=== PATIENT | male | born 2000 ===

== ENCOUNTER 2021-12-22 08:48 | Emergency (ER) | payer SELFPAY ==
[2021-12-22] MEDS ORDERED: TETANUS,DIPH,PERTUSS(ACELL) VACCINE 0.5 ML SYRINGE IM ONE (11:26)
[2021-12-22] MEDS ORDERED: LIDOCAINE (1%) 10 MG/1 ML VIAL 20 ML MDV INFILTRATI ONE (11:26)
[2021-12-22] MEDS ORDERED: SODIUM CHLORIDE 0.9% IRR 500 ML BOTTLE IR ONE (11:27)
[2021-12-22 11:40] VITALS: BP 124/64
--- NOTE | 2021-12-22 12:08 | XRay Report ---
LEFT FINGERS 3 VIEWS INDICATION / CLINICAL INFORMATION: laceration, r/o fracture/FB. COMPARISON: None available. FINDINGS: No fracture, dislocation or soft tissue swelling is seen within the right long finger. No soft tissue gas or radiopaque foreign body. Signer Name: Rudy Willett MD Signed: 12/22/2021 12:04 PM Workstation Name: [email or web address] [email or web address] [id number]
--- NOTE | 2021-12-22 12:53 | Emergency Department Report ---
ED General Adult HPI - General Chief complaint: Laceration/Recheck/Suture Stated complaint: CUT FINGER Time Seen by Provider: 12/22/21 10:44 Source: patient Mode of arrival: Ambulatory Limitations: No Limitations - History of Present Illness Initial comments: 21-year-old male patient presents with complaints of laceration to the left middle finger today. Patient states he cut his hand with a table saw. He denies any loss of sensation or difficulty moving the finger. No known drug allergies per patient. He is unsure of his last tetanus vaccination. Severity scale (0 -10): 3 - Related Data Previous Rx's Medication Instructions Recorded Last Taken Type Ibuprofen [Motrin 800 MG tab] 800 mg PO Q8HR PRN #20 tablet 12/22/21 Unknown Rx Mupirocin [Bactroban 2% OINT] 1 applic TP TID 7 Days #1 tube 12/22/21 Unknown Rx cephALEXin [Keflex] 500 mg PO Q12HR 7 Days #14 cap 12/22/21 Unknown Rx Allergies Allergy/AdvReac Type Severity Reaction Status Date / Time No Known Allergies Allergy Verified 12/22/21 10:35 ED Review of Systems ROS: Stated complaint: CUT FINGER Other details as noted in HPI Musculoskeletal: denies: arthralgia Skin: denies: change in color Neurological: denies: numbness, paresthesias ED Past Medical Hx - Medications Home Medications: Home Medications Medication Instructions Recorded Confirmed Last Taken Type Ibuprofen [Motrin 800 MG tab] 800 mg PO Q8HR PRN #20 tablet 12/22/21 Unknown Rx Mupirocin [Bactroban 2% OINT] 1 applic TP TID 7 Days #1 tube 12/22/21 Unknown Rx cephALEXin [Keflex] 500 mg PO Q12HR 7 Days #14 cap 12/22/21 Unknown Rx ED Physical Exam - General Limitations: No Limitations General appearance: alert, in no apparent distress - Head Head exam: Present: atraumatic, normocephalic - Eye Eye exam: Present: normal appearance. Absent: scleral icterus - Neurological Exam Neurological exam: Present: alert, oriented X3, normal gait - Psychiatric Psychiatric exam: Present: normal affect, normal mood - Skin Skin exam: Present: warm, dry, normal color. Absent: intact (Approximately 3 cm laceration noted to dorsal aspect of left middle finger with active bleeding, mild; patient has normal range of motion of the finger and normal sensation; normal capillary refill is noted), rash ED Course Vital Signs 12/22/21 12/22/21 10:32 11:38 Temperature 98.2 F Pulse Rate 50 L 50 L Respiratory 16 20 Rate Blood Pressure 124/62 124/64 [Left] O2 Sat by Pulse 99 99 Oximetry - Laceration /Wound Repair Finger Wound's Depth, Shape: linear, irregular Irrigated w/ Saline (ccs): 300 Betadine Prep?: Yes Anesthesia: 1% Lidocaine Suture Size/Type: 3:0 (At the line) Number of Sutures: 7 (Simple interrupted) Sterile Dressing Applied?: Yes Progress: Minimal bleeding occurred. Patient tolerated procedure well without any immediate complications. Patient placed and a dynamic finger splint ED Medical Decision Making - Medical Decision Making Laceration repair. Patient tolerated procedure well without any immediate complications. He has full range of motion and normal perfusion of the finger post procedure. Discussed wound care instructions and strict return precautions in detail with patient who verbalizes understanding. He is to return to the ED in 12 days for suture removal Critical care attestation.: If time is entered above; I have spent that time in minutes in the direct care of this critically ill patient, excluding procedure time. ED Disposition Clinical Impression: Finger laceration Disposition: 01 HOME / SELF CARE / HOMELESS Is pt being admited?: No Condition: Stable Instructions: Sutured Wound Care, [id number] Additional Instructions: Please return to the emergency department in 12 days for suture removal Prescriptions: Mupirocin [Bactroban 2% OINT] 1 applic TP TID 7 Days #1 tube cephALEXin [Keflex] 500 mg PO Q12HR 7 Days #14 cap Ibuprofen [Motrin 800 MG tab] 800 mg PO Q8HR PRN #20 tablet PRN Reason: pain Referrals: PRIMARY CARE,MD [Primary Care Provider] - 3-5 Days Forms: Work/School Release Form(ED)
== END 2021-12-22 13:20 | disposition home or self-care (01) ==
LOC: ED 08:48
DX: S61.213A Laceration without foreign body of left middle finger without damage to nail, initial encounter (principal); X58.XXXA Exposure to other specified factors, initial encounter; Y93.89 Activity, other specified; Y92.89 Other specified places as the place of occurrence of the external cause; Y99.8 Other external cause status
CPT/HCPCS: 12002; 73140; 90471; 90715; 99283; J3490